=== PATIENT | female | born 1945 | race Hispanic/Latino ===

== ENCOUNTER 2020-10-19 07:14 | Observation (INO) | payer MEDICARE ==
[2020-10-14 09:38] LABS: BASOPHILS # (AUTO) 0.1 (0.0-0.1); BASOPHILS % 0.6 % (0.0-1.0); EOSINOPHILS # (AUTO) 0.2 (0.0-0.4); EOSINOPHILS % 2.1 % (0.0-6.0); HEMATOCRIT 37.8 % (34.2-44.1); HEMOGLOBIN 12.6 g/dL (12.0-16.0); LYMPHOCYTES # (AUTO) 2.7 (1.0-3.2); LYMPHOCYTES % 31.5 % (18.0-39.1); MEAN CORPUSCULAR HGB CONC 33.3 g/dL (31-35); MEAN CORPUSCULAR VOLUME 93.1 fL (81-99); MONOCYTES # (AUTO) 0.6 (0.2-0.8); MONOCYTES % 6.8 % (4.4-11.3); NEUTROPHILS # (AUTO) 5.1 (2.1-6.9); NEUTROPHILS % 58.8 % (38.7-80.0); PLATELET COUNT 231 x10e3/uL (140-360); RED BLOOD COUNT 4.06 x10e6/uL (3.6-5.1); RED CELL DISTRIBUTION WIDTH 13.4 % (11.7-14.4)
[2020-10-14 09:58] LABS: ALANINE AMINOTRANSFERASE 19 IU/L (0-55); ALBUMIN 4.3 g/dL (3.5-5.0); ALBUMIN/GLOBULIN RATIO 1.4 (0.8-2.0); ALKALINE PHOSPHATASE 99 IU/L (40-150); ANION GAP 12.1 mmol/L (8-16); BLOOD UREA NITROGEN 12 mg/dL (7-26); BUN/CREATININE RATIO 18 (6-25); CALCIUM 9.1 mg/dL (8.4-10.2); CARBON DIOXIDE 24 mmol/L (22-29); CHLORIDE 109 mmol/L (98-107); CREATININE, SERUM 0.67 mg/dL (0.57-1.11); EST GLOMERULAR FILTRATION RATE > 60 ML/MIN (60-); GLUCOSE 94 mg/dL (74-118); POTASSIUM 4.1 mmol/L (3.5-5.1); SODIUM 141 mmol/L (136-145)
[~2020-10-19] VITALS: Ht 147.3 cm; Wt 81.2 kg
[~2020-10-19 07:14] MED LIST: BUPIVACAINE 0.5%/EPI 30 ML SDV INJ ONE; CELECOXIB200 MG PO; ESTROGENS CONJUGATED VAGINAL CR 45 GM TUBE PV ONE; SIMVASTATIN40 MG PO
[2020-10-19] MEDS ORDERED: CEFAZOLIN SOD 1 GM/NS 50ML 100 ML IV ONE (07:32)
[2020-10-19] MEDS ORDERED: ACETAMINOPHEN 1000 MG/100 ML 100 ML IV ONE (10:03)
[2020-10-19] MEDS ORDERED: ATROPINE SULFATE 1 MG/ML VIAL ONE (12:08)
[2020-10-19] MEDS ORDERED: ONDANSETRON HCL INJ 2MG/ML 2ML 2 MG/ML VIAL ONE (12:08)
[2020-10-19] MEDS ORDERED: GLYCOPYRROLATE INJ 0.2 MG/ML VIAL ONE (12:08)
[2020-10-19] MEDS ORDERED: POVIDONE IODINE 0.05% 0.05 % ML PO ONE (12:08)
[2020-10-19] MEDS ORDERED: ROCURONIUM BROMIDE 10 MG/ML 5ML VIAL IV ONE (12:08)
[2020-10-19] MEDS ORDERED: PROPOFOL IV EMULSION 10 MG/ML 20 ML VIAL ONE (12:08)
[2020-10-19] MEDS ORDERED: DEXAMETHASONE SOD PHOS INJ 4 MG/ML VIAL ONE (12:08)
[2020-10-19] MEDS ORDERED: NEOSTIGMINE 1 MG/ML 10ML VIAL ONE (12:08)
[2020-10-19] MEDS ORDERED: SEVOFLURANE INHAL SOLN 250 ML PEN BTL ONE (12:08)
[2020-10-19] MEDS ORDERED: FENTANYL CITRATE/PF 100MCG/2 ML INJ ONE ×2 (12:19→19:27)
[2020-10-19] MEDS ORDERED: HYDROCODONE/APAP 5MG-325MG TAB ONE (14:39)
[2020-10-19] MEDS ORDERED: LACTATED RINGER'S 1,000 ML INJ ONE (19:15)
[2020-10-19] MEDS ORDERED: HYDROCODONE/APAP 5MG-325MG TAB PO PRN (19:15)
[2020-10-19] MEDS ORDERED: IBUPROFEN 600 MG TAB PO PRN (19:15)
[2020-10-19] MEDS ORDERED: ACETAMINOPHEN 325 MG TAB PO PRN (19:15)
[2020-10-19] MEDS ORDERED: MIDAZOLAM HCL 2 MG/2 ML VIAL ONE (19:27)
[2020-10-19 19:39] VITALS: BP 145/67
[2020-10-19] MEDS ORDERED: HYDROCODON-ACE1 EA11 (19:50)
[2020-10-19 20:12] VITALS: BP 145/67
== END 2020-10-19 20:49 | disposition home or self-care (01) ==
LOC: OR 07:14 → MED/SURG 17:54
PROVIDERS: ADMIT Obstetrics & Gynecology; ATTEND Obstetrics & Gynecology
DX: N81.9 Female genital prolapse, unspecified (principal); N81.4 Uterovaginal prolapse, unspecified; Z01.810 Encounter for preprocedural cardiovascular examination; Z01.812 Encounter for preprocedural laboratory examination; Z01.818 Encounter for other preprocedural examination; Z20.822 Contact with and (suspected) exposure to COVID-19
CPT/HCPCS: 36415; 57260; 58262; 71046; 80053; 85025; 88305; 88307; 93005; G0378; J0131; J0461; J0690; J1100; J2250; J2405; J2704; J2710; J3010; U0002; 88304